=== PATIENT | male | born 1930 | race Caucasian/White ===

== ENCOUNTER 2018-02-12 18:25 | Emergency (ER) | payer OTHER, MEDICARE ==
--- NOTE | 2018-02-12 19:45 | PDOC ---
History of Present Illness - General History Source: Patient, Family Exam Limitations: No Limitations - History of Present Illness Initial Comments: 02/12/18 19:55 Patient is an 87 year old male with a significant past medical history of Heart attack (on coumadin), Stroke, Gout, Arthritis, who presents to the ED with complaints of left shoulder and arm pain that began earlier this week. As per patient's daughter, patient has been complaining to her about his left shoulder and arm pain that he states increased in intensity last night. She reports coming to his home this morning when she noticed a large bruise on his left arm. Patients daughter reports calling his primary care doctor who advised she take him into the ED for further evaluation and to have a PT and InR test conducted. Denies chest pain, Sob. Denies nausea, vomiting. Denies fevers, chills. Denies contact with sick individuals, out of state travelling. Denies dysuria, hematuria. Denies diarrhea, constipation. Denies trauma to affected area. Denies any other symptoms. Allergies: Sulfa, Sulfamethoxazole, trimethoprim Social history: Lives with . No smoking. No alcohol. No illicit drugs. Surgical history: x3 cardiac stents. PMD: Dr. Gurjit Velazco <Trenton Morillo - Last Filed: 02/12/18 19:55> <Pretty Palma - Last Filed: 02/12/18 21:33> - General Chief Complaint: Injury Stated Complaint: SHOULDER HEMATOMA Time Seen by Provider: 02/12/18 19:37 Past History <Trenton Morillo - Last Filed: 02/12/18 19:55> - Past Medical History Cardiac Disorders: Yes (A-FIB) CVA: Yes COPD: No Hypercholesterolemia: Yes Thyroid Disease: Yes Other medical history: GOUT - Surgical History Cardiac Surgery: Yes (STENT X3) - Suicide/Smoking/Psychosocial Hx Smoking History: Former smoker Have you smoked in the past 12 months: No If you are a former smoker, when did you quit?: 1970 Information on smoking cessation initiated: No Substance Use Type: None <Pretty Palma - Last Filed: 02/12/18 21:33> - Past Medical History Allergies/Adverse Reactions: Allergies Allergy/AdvReac Type Severity Reaction Status Date / Time Sulfa (Sulfonamide Allergy Mild Rash Verified 02/12/18 18:28 Antibiotics) sulfamethoxazole Allergy Mild Rash Verified 02/12/18 18:28 [From Bactrim] trimethoprim [From Bactrim] Allergy Mild Rash Verified 02/12/18 18:28 Home Medications: Ambulatory Orders Allopurinol [Zyloprim -] 200 mg PO DAILY 02/12/18 Aspirin Coated [Ecotrin -] 81 mg PO DAILY 02/12/18 Atorvastatin Calcium 40 mg PO HS 02/12/18 Clopidogrel Bisulfate [Clopidogrel] 75 mg PO DAILY 02/12/18 Colchicine 0.6 mg PO DAILY 02/12/18 Furosemide [Lasix] 40 mg PO BID 02/12/18 Levothyroxine [Synthroid -] 75 mcg PO DAILY 02/12/18 Lisinopril 10 mg PO DAILY 02/12/18 Metoprolol Tartrate [Lopressor] 50 mg PO BID 02/12/18 Potassium Chloride 10 meq PO BID 02/12/18 Warfarin Na [Coumadin] 2.5 mg PO MOTUWETHFRSA 02/12/18 Warfarin Sodium [Coumadin] 5 mg PO CANTU 02/12/18 Review of Systems - Review of Systems Able to Perform ROS?: Yes Comments:: 02/12/18 19:55 GENERAL/CONSTITUTIONAL: No fever or chills. No weakness. HEAD, EYES, EARS, NOSE AND THROAT: No change in vision. No ear pain or discharge. No sore throat. CARDIOVASCULAR: No chest pain or shortness of breath. RESPIRATORY: No cough, wheezing, or hemoptysis. GASTROINTESTINAL: No nausea, vomiting, diarrhea or constipation. GENITOURINARY: No dysuria, frequency, or change in urination. MUSCULOSKELETAL: +Left arm pain. +Left shoulder pain No joint or muscle swelling No neck or back pain. SKIN: No rash NEUROLOGIC: No headache, vertigo, loss of consciousness, or change in strength/ sensation. ENDOCRINE: No increased thirst. No abnormal weight change. HEMATOLOGIC/LYMPHATIC: No anemia, easy bleeding, or history of blood clots. ALLERGIC/IMMUNOLOGIC: No hives or skin allergy. <Trenton Morillo - Last Filed: 02/12/18 19:55> *Physical Exam - Physical Exam Comments: 02/12/18 19:55 GENERAL: Awake, alert, and fully oriented, in no acute distress HEAD: No signs of trauma EYES: PERRLA, EOMI, sclera anicteric, conjunctiva clear ENT: Auricles normal inspection, hearing grossly normal, nares patent, oropharynx clear without exudates. Moist mucosa NECK: Normal ROM, supple, no lymphadenopathy, JVD, or masses LUNGS: Breath sounds equal, clear to auscultation bilaterally. No wheezes, and no crackles HEART: Regular rate and rhythm, normal S1 and S2, no murmurs, rubs or gallops ABDOMEN: Soft, nontender, normoactive bowel sounds. No guarding, no rebound. No masses EXTREMITIES: +Entire Right arm bicep black and blue with large bruise 7 inches by 7 inches wrapping around his arm. +Tense but not painful. +Full ROM of his entire arm. +Good pulses. +Good color. No evidence of compartment syndrome. Normal range of motion, no edema. No clubbing or cyanosis. No cords, erythema, or tenderness NEUROLOGICAL: Cranial nerves II through XII grossly intact. Normal speech, normal gait SKIN: Warm, Dry, normal turgor, no rashes or lesions noted. <Trenton Morillo - Last Filed: 02/12/18 19:55> ED Treatment Course - LABORATORY CBC & Chemistry Diagram: 02/12/18 20:00 02/12/18 20:00 <Pretty Palma - Last Filed: 02/12/18 21:33> Medical Decision Making - Medical Decision Making 02/12/18 21:31 Pt comes with bruising all over and a large hematoma at the left bicep area. No compartment syndrome. Pt has FROM of shoulders, elbow and wrist and fingers, good strength and no pain with ROM. Pt is on asa, plavix and warfarin. INR is normal, but he has a low platelwet count 105K. He will be referred to hematology. <Pretty Palma - Last Filed: 02/12/18 21:33> *DC/Admit/Observation/Transfer - Attestations Scribe Attestion: 02/12/18 19:55 Documentation prepared by Trenton Morillo, acting as biomedical engineering supervisor for Pretty Palma MD. <Trenton Morillo - Last Filed: 02/12/18 19:55> - Discharge Dispostion Decision to Admit order: No <Pretty Palma - Last Filed: 02/12/18 21:33> Diagnosis at time of Disposition: Thrombocytopenia - Discharge Dispostion Disposition: HOME Condition at time of disposition: Stable - Referrals Referrals: Gurjit Velazco [Primary Care Provider] - Jsaon Christensen MD [Staff Physician] - Hang Blanchard MD [Staff Physician] - - Patient Instructions Printed Discharge Instructions: Platelet Count - Post Discharge Activity
[2018-02-12 20:35] LABS: BASO % 0.5 % (0-2.0); EOS % 1.1 % (0-4.5); HEMATOCRIT 35.9 % (35.4-49); LYMPH % 21.4 % (8-40); MCH 31.5 pg (25.7-33.7); MCHC 33.5 g/dl (32.0-35.9); MEAN CELL VOLUME 94.2 fl (80-96); MEAN PLT VOLUME 9.7 fl (7.5-11.1); MONO % 8.1 % (3.8-10.2); NEUT % 68.9 % (42.8-82.8); PLATELET COUNT 105 K/MM3 (134-434); RBC 3.81 M/mm3 (4.00-5.60); RDW 13.7 % (11.9-15.9); WHITE BLOOD COUNT 9.4 K/mm3 (4.0-10.8)
[2018-02-12 20:44] LABS: ALBUMIN 3.5 g/dl (3.5-5.0); ALK PHOS 77 U/L (32-92); ANION GAP 9 (8-16); BILIRUBIN,TOTAL 1.1 mg/dl (0.2-1.0); BLOOD UREA NITROGEN 35 mg/dl (7-18); CHLORIDE 103 mmol/L (98-107); CO2 26 mmol/L (22-28); CREATININE 1.3 mg/dl (0.6-1.3); GLUCOSE,RANDOM 121 mg/dl (74-106); POTASSIUM 3.3 mmol/L (3.5-5.1); SGOT/AST 33 U/L (10-42); SGPT/ALT 36 U/L (10-40); SODIUM 138 mmol/L (136-145); TOT PROT 6.3 g/dl (6.4-8.3)
[2018-02-12 20:48] LABS: INR 2.99 (0.82-1.09); PROTHROMBIN TIME (PATIENT) 32.8 SEC (10.2-13.0)
== END 2018-02-12 21:12 | disposition home or self-care (01) ==
LOC: FER 18:25
DX: D69.6 Thrombocytopenia, unspecified (principal); I48.91 Unspecified atrial fibrillation; Z79.01 Long term (current) use of anticoagulants; E78.00 Pure hypercholesterolemia, unspecified; E03.9 Hypothyroidism, unspecified; Z95.5 Presence of coronary angioplasty implant and graft; Z87.891 Personal history of nicotine dependence
CPT/HCPCS: 36415; 80053; 85025; 85610; 99282-25